=== PATIENT | male | born 1975 | race Caucasian/White ===

== ENCOUNTER 2018-05-25 00:23 | Emergency (ER) | payer MEDICAID, OTHER ==
[~2018-05-25] VITALS: Ht 182.9 cm; Wt 139.1 kg
[~2018-05-25 00:23] MED LIST: NOCURR
[2018-05-25 02:28] VITALS: BP 153/95
[2018-05-25] MEDS ORDERED: BACITRACIN 0.9 GM PACKET OINTMENT TP ONE (02:45)
[2018-05-25] MEDS ORDERED: PERTUSS(ACELL),DIPH,TET VAC/PF 0.5 ML VIAL IM ONE (02:45)
== END 2018-05-25 02:50 | disposition home or self-care (01) ==
LOC: EMS 00:23
DX: T22.212A Burn of second degree of left forearm, initial encounter (principal); T31.0 Burns involving less than 10% of body surface; X12.XXXA Contact with other hot fluids, initial encounter; Y93.89 Activity, other specified; Y92.89 Other specified places as the place of occurrence of the external cause; Y99.8 Other external cause status
CPT/HCPCS: 16020; 90471; 90715